=== PATIENT | female | born 1970 | race Caucasian/White ===

== ENCOUNTER → 2017-05-29 | Outpatient (CLI) | payer BC ==
[2017-05-29 09:42] LABS: ALBUMIN 3.6 gm/dl (3.1-4.5); ALKALINE PHOSPHATASE 84 U/L (45-117); BILIRUBIN, DIRECT < 0.1 mg/dL (0.0-0.2); BILIRUBIN, TOTAL 0.3 mg/dl (0.2-1.0); BUN 18 mg/dl (7-24); EST GLOM FILT AFRICAN AMERICAN > 60 ml/min; SGOT/AST 16 IU/L (3-35); SGPT/ALT 26 U/L (12-78); TOTAL PROTEIN 7.1 gm/dL (6.4-8.2)
== END | disposition home or self-care (01) ==
LOC: LAB 08:44
PROVIDERS: Internal Medicine
DX: E55.9 Vitamin D deficiency, unspecified (principal); Z79.1 Long term (current) use of non-steroidal anti-inflammatories (NSAID)

== ENCOUNTER 2022-10-31 16:44 | Emergency (ER) | payer OTHER, BC ==
[~2022-10-31] VITALS: Ht 157.4 cm; Wt 91.6 kg
[2022-10-31] MEDS ORDERED: NAPROXEN250 MG PO ×2 (17:37→17:52)
[2022-10-31] MEDS ORDERED: TYLENOL325 M1 PO ×2 (17:37→17:52)
== END 2022-10-31 18:11 | disposition home or self-care (01) ==
LOC: ED 16:44
DX: S49.91XA Unspecified injury of right shoulder and upper arm, initial encounter (principal); Z88.8 Allergy status to other drugs, medicaments and biological substances; W18.39XA Other fall on same level, initial encounter; Y93.89 Activity, other specified; Y92.89 Other specified places as the place of occurrence of the external cause; Y99.8 Other external cause status

== ENCOUNTER 2022-12-21 14:53 | Emergency (ER) | payer BC ==
[~2022-12-21] VITALS: Ht 157.4 cm; Wt 92.5 kg
[~2022-12-21 14:53] MED LIST: NAPROXEN250 MG PO; TYLENOL325 M1 PO
[2022-12-21 15:50] LABS: BASO # 0.1 10*3/uL (0.0-0.1); BASO % 0.8 % (0.0-1.0); EOS # 0.2 10*3/uL (0.0-0.4); EOS % 2.3 % (1.0-4.0); HEMATOCRIT 40.9 % (37.0-47.0); LYMPH # 3.2 10*3/uL (1.3-4.4); LYMPH % 34.7 % (27.0-41.0); MEAN CELL VOLUME 91.9 fl (81.0-99.0); MEAN CORPUSCULAR HGB 29.9 pg (27.0-31.0); MEAN CORPUSCULAR HGB CONC 32.5 g/dl (33.0-37.0); MEAN PLATELET VOLUME 9.8 fl (9.6-12.3); MONO # 0.7 10*3/uL (0.1-1.0); MONO % 7.6 % (3.0-9.0); NEUT # 4.9 10*3/uL (2.3-7.9); NEUT % 54.3 % (47.0-73.0); PLATELET COUNT AUTOMATED 273 10*3/uL (130-400); RED BLOOD COUNT 4.45 10*6/uL (4.10-5.10); RED CELL DISTRI WIDTH 13.4 % (0-14.5); WHITE BLOOD COUNT 9.1 10*3/uL (4.8-10.8)
[2022-12-21 16:08] LABS: ALKALINE PHOSPHATASE 97 U/L (46-116); BUN 17 mg/dl (9-23); CHLORIDE 109 mmol/L (98-107); POTASSIUM 4.3 mmol/L (3.4-5.1); SGPT/ALT 26 U/L (10-49); TOTAL PROTEIN 6.8 gm/dL (6.0-8.0)
[2022-12-21] MEDS ORDERED: PROVENTIL HFA6.7 GM INH (16:34)
[2022-12-21] MEDS ORDERED: PREDNISONE50 MG PO (16:34)
[2022-12-21] MEDS ORDERED: ZITHROMAX250 MG PO (16:34)
== END 2022-12-21 16:45 | disposition home or self-care (01) ==
LOC: ED 14:53
PROVIDERS: Student in an Organized Health Care Education/Training Program
DX: J44.1 Chronic obstructive pulmonary disease with (acute) exacerbation (principal); Z88.5 Allergy status to narcotic agent

== ENCOUNTER 2023-11-17 15:13 | Emergency (ER) | payer BC ==
[~2023-11-17] VITALS: Ht 160 cm; Wt 96.2 kg
[~2023-11-17 15:13] MED LIST changes: +PREDNISONE50 MG PO; +PROVENTIL HFA6.7 GM INH; +ZITHROMAX250 MG PO
[2023-11-17 16:09] LABS: BASO # 0.1 10*3/uL (0.0-0.1); BASO % 0.9 % (0.0-1.0); EOS # 0.2 10*3/uL (0.0-0.4); EOS % 2.8 % (1.0-4.0); HEMATOCRIT 41.4 % (37.0-47.0); LYMPH # 2.6 10*3/uL (1.3-4.4); LYMPH % 35.5 % (27.0-41.0); MEAN CELL VOLUME 92.6 fl (81.0-99.0); MEAN CORPUSCULAR HGB 29.8 pg (27.0-31.0); MEAN CORPUSCULAR HGB CONC 32.1 g/dl (33.0-37.0); MEAN PLATELET VOLUME 9.6 fl (9.6-12.3); MONO # 0.6 10*3/uL (0.1-1.0); MONO % 7.4 % (3.0-9.0); NEUT % 53.3 % (47.0-73.0); PLATELET COUNT AUTOMATED 240 10*3/uL (130-400); RED BLOOD COUNT 4.47 10*6/uL (4.10-5.10); RED CELL DISTRI WIDTH 13.4 % (0-14.5); WHITE BLOOD COUNT 7.4 10*3/uL (4.8-10.8)
[2023-11-17 16:31] LABS: ALKALINE PHOSPHATASE 90 U/L (46-116); BUN 18 mg/dl (9-23); CHLORIDE 109 mmol/L (98-107); LIPASE 37 U/L (12-53); POTASSIUM 4.1 mmol/L (3.4-5.1); SGPT/ALT 34 U/L (5-49); TOTAL PROTEIN 6.6 gm/dL (6.0-8.0)
[2023-11-17 16:31] LABS: BILIRUBIN Negative (Negative); BLOOD Negative (Negative); CLARITY Clear (Clear); COLOR Yellow (Yellow); GLUCOSE Negative (Negative); KETONE Negative (Negative); LEUKO ESTERASE Negative (Negative); NITRITE Negative (Negative); PH 5.5 (4.5-8.0); UROBILINOGEN 0.2 E.U./dl (0.0-1.0)
[2023-11-17 16:44] LABS: BACTERIA 1+
[2023-11-17] MEDS ORDERED: OMNICEF300 MG PO (18:01)
[2023-11-17] MEDS ORDERED: ONDANSETRON4 MG SL (18:01)
== END 2023-11-17 18:15 | disposition home or self-care (01) ==
LOC: ED 15:13
PROVIDERS: Family Medicine; Internal Medicine
DX: N12 Tubulo-interstitial nephritis, not specified as acute or chronic (principal); Z88.5 Allergy status to narcotic agent; F17.210 Nicotine dependence, cigarettes, uncomplicated

== ENCOUNTER 2024-04-23 20:37 | Emergency (ER) | payer BC ==
[~2024-04-23 20:37] MED LIST changes: +OMNICEF300 MG PO; +ONDANSETRON4 MG SL
== END 2024-04-23 22:58 | disposition left against medical advice (07) ==
LOC: ED 20:37
DX: R07.81 Pleurodynia (principal); Z53.21 Procedure and treatment not carried out due to patient leaving prior to being seen by health care provider

== ENCOUNTER 2024-12-04 03:02 | Emergency (ER) | payer BC ==
[~2024-12-04] VITALS: Ht 157.4 cm; Wt 92.5 kg
[2024-12-04 03:41] LABS: BASO # 0.1 10*3/uL (0.0-0.1); BASO % 0.7 % (0.0-1.0); EOS # 0.3 10*3/uL (0.0-0.4); EOS % 3.2 % (1.0-4.0); HEMATOCRIT 42.6 % (37.0-47.0); MEAN CELL VOLUME 91.6 fl (81.0-99.0); MEAN CORPUSCULAR HGB 29.5 pg (27.0-31.0); MEAN CORPUSCULAR HGB CONC 32.2 g/dl (33.0-37.0); MEAN PLATELET VOLUME 9.5 fl (9.6-12.3); MONO # 0.7 10*3/uL (0.1-1.0); MONO % 8.3 % (3.0-9.0); NEUT # 4.6 10*3/uL (2.3-7.9); NEUT % 51.5 % (47.0-73.0); PLATELET COUNT AUTOMATED 255 10*3/uL (130-400); RED BLOOD COUNT 4.65 10*6/uL (4.10-5.10); RED CELL DISTRI WIDTH 13.2 % (0-14.5); WHITE BLOOD COUNT 8.9 10*3/uL (4.8-10.8)
[2024-12-04 03:59] LABS: BUN 18 mg/dl (9-23); CHLORIDE 112 mmol/L (98-107); POTASSIUM 4.2 mmol/L (3.4-5.1)
[2024-12-04] MEDS ORDERED: methylPREDNISolone sod succ 125 MG VIAL IM ONE (05:00)
[2024-12-04] MEDS ORDERED: Albuterol Sulf/Ipratropium 3 ML VIAL NEB ONE (05:00)
[2024-12-04] MEDS ORDERED: MEDROL DOSEPAK4 MG PO (05:30)
== END 2024-12-04 06:17 | disposition home or self-care (01) ==
LOC: ED 03:02
PROVIDERS: Internal Medicine
DX: J44.9 Chronic obstructive pulmonary disease, unspecified (principal); R04.2 Hemoptysis; Z88.5 Allergy status to narcotic agent; Z90.710 Acquired absence of both cervix and uterus; Z90.49 Acquired absence of other specified parts of digestive tract

== ENCOUNTER 2025-10-09 10:17 | Emergency (ER) | payer OTHER, BC ==
[~2025-10-09] VITALS: Ht 157.4 cm; Wt 98.4 kg
[~2025-10-09 10:17] MED LIST changes: +MEDROL DOSEPAK4 MG PO
[2025-10-09] MEDS ORDERED: SODIUM CHLORIDE 0.9% 1,000 ML IV ONE (11:29)
[2025-10-09] MEDS ORDERED: METHOCARBAMOL 750 MG TAB PO ONE (11:30)
[2025-10-09] MEDS ORDERED: LIDOCAINE 1 EA PATCH T ONE (11:35)
[2025-10-09] MEDS ORDERED: METHOCARBAMOL750 M1 PO (14:18)
== END 2025-10-09 14:30 | disposition home or self-care (01) ==
LOC: ED 10:17
DX: M62.838 Other muscle spasm (principal); M54.2 Cervicalgia; M54.6 Pain in thoracic spine; Z88.5 Allergy status to narcotic agent; Z79.899 Other long term (current) drug therapy; Z90.710 Acquired absence of both cervix and uterus; Z90.49 Acquired absence of other specified parts of digestive tract; Y99.0 Civilian activity done for income or pay; X50.0XXA Overexertion from strenuous movement or load, initial encounter; Y93.89 Activity, other specified; Y92.69 Other specified industrial and construction area as the place of occurrence of the external cause